=== PATIENT | female | born 1975 | race Caucasian/White ===

== ENCOUNTER → 2018-09-03 | Outpatient (CLI) | payer BC ==
[~2018-09-03] MED LIST: REGADENOSON 0.4 MG/5 ML DISP.SYRIN. IV ONE
--- NOTE | 2018-09-04 11:21 | RAD ---
MR#: [id number] Date of Study: 09/04/2018 Ordering Physician: DB SMITH, Referring Physician: DB SMITH, Tech: Zelda Andersen RDMS, RVT, RTR APPROVED REPORT Patient Location : OUT-PATIENT Indications Lower Extremity Edema : Bilateral Venous Insufficiency Findings Grayscale images of the bilateral saphenofemoral junctions and greater and lesser saphenous veins do not reveal any obvious evidence of thrombus. There is no evidence of reflux in the bilateral greater and lesser saphenous veins. The right great s aphenous vein measures 3.1 mm and the left great saphenous vein measures 3.8 mm. Critical Notification Critical Value: No <Conclusion> Negative for reflux in the bilateral greater and lesser saphenous veins. Signed by : Javy Hoyt, Electronically Approved : 09/04/2018 11:18:36
--- NOTE | 2018-09-04 12:58 | RAD ---
MR#: [id number] Date of Study: 09/04/2018 Ordering Physician: DB SMITH, Referring Physician: GERMÁN WELLER Tech: JW Jordan, ARRT (R) (N) APPROVED REPORT Test Type: Pharmacological Stress Nurse/Tech: Maria Dolores Mathews R.N./Robyn Cervantes RN Test Indications: PEREZ Cardiac History: No known cardiac Medications: See Electronic Medical Record Medical History: See Electronic Medical Record Resting ECG: SB with BBB Resting Heart Rate: 50 bpm Resting Blood Pressure: 100/60mmHg Pretest Chest Pain: No chest pain Nurse/Tech Notes S1S2, Lungs CTA Consent: The procedure was explained to the patient in lay terms. Informed consent was witnessed. Thang eout was entered into [facility]. History and Stress Test performed by RT Hossein Chamorro) (N) Pharm. Details Pharmacologic stress testing was performed using 0.4mg per 5ml of regadenoson given intravenously ove r 7-10 seconds. Stress Symptoms Dyspnea, Flushing, Nausea, Dizziness, Fatigue POST EXERCISE Reason for Termination: Infusion complete Max HR: 103 bpm Max Blood Pressure: 107/58mmHg Chest Pain: No. Arrhythmia: No. BBB continues from previous. ST Change: No. INTERPRETATION Stress EKG Conclusion: Baseline EKG showed sinus rhythm. No ischemic changes at peak stress. No arr hythmias. Imaging Protocol IMAGE PROTOCOL: Rest Tc-99m/stress Tc-99m 2 days Rest: Stress: Viability: Radiopharm.Tc99m KrggvfmxcKk90z Sestamibi Erly19lYr 32mCi Img Date 09/03/2018 09/04/2018 Inj-Img Nvry94bie. 90min. Rest Admin Site:IV - Right AntecubitalAdministrator:RT Hossein Chamorro)(N) Stress Admin Site: Doughnut Dough Mixer: RT Hossein Chamorro)(N) STRESS DATA End Diast. Vol.138.0mlLVEDV index BSA63.0ml End Syst. Vol.50.0mlLVESV index BSA23.0ml Myocardial Zquo403.0gEject. Grkacekw33.0% Stress Scores Regional WT0.00Summed WT0.00 Regional WM0.00Summed WM3.00 Study quality was good. Left Ventricular size was Normal at Rest and Stress. Lung uptake was . Left Ventricular ejection fraction is 64%. The rest and stress images show normal perfusion, normal contraction and thickening. LV Perf. Quant 17 Seg. SSS5.00 17 Seg. SRS0.00 17 Seg. SDS5.00 Stress Defect Extent (% LAD)8.80Rest Defect Extent (% LAD)0.00Rev. Defect Extent (% LAD)5.60 Stress Defect Extent (% LCX) 13.80Rest Defect Extent (% LCX)0.00Rev. Defect Extent (% LCX)13.80 Stress Defect Extent (% RCA)3.30Rest Defect Extent (% RCA)0.00Rev. Defect Extent (% RCA)3.30 Stress Defect Extent (% SANJAY)9.80Rest Defect Extent (% SANJAY)0.00Rev. Defect Extent (% SANJAY)7.60 Conclusion 1. Regadenoson cardioisotope stress test did not show any evidence of ischemia or infarct. 2. Normal left ventricular systolic function with ejection fraction calculated at 64%. 3. Low risk for cardiac events. Signed by : Db Smith, Electronically Approved : 09/04/2018 12:56:14
== END | disposition home or self-care (01) ==
LOC: NM 10:11
PROVIDERS: ATTEND Internal Medicine Cardiovascular Disease
DX: I87.2 Venous insufficiency (chronic) (peripheral) (principal); I45.4 Nonspecific intraventricular block
CPT/HCPCS: 78452; 96374; A9500; 93017; 93970; 96376; J2785

== ENCOUNTER → 2018-09-03 | Outpatient (CLI) | payer BC ==
--- NOTE | 2018-09-03 14:34 | CARD ---
MR#: [id number] Date of Study: 09/03/2018 Ordering Physician: DB SMITH, Referring Physician: DB SMITH Tech: Sally Mendenhall RDCS APPROVED REPORT EXAM: Two-dimensional and M-mode echocardiogram with Doppler and color Doppler. Other Information Quality : Good INDICATION Exertional Dyspnea 2D DIMENSIONS RVDd3.4 (2.9-3.5cm)Left Atrium(2D)4.5 (1.6-4.0cm) IVSd0.8 (0.7-1.1cm)Aortic Root(2D)3.0 (2.0-3.7cm) LVDd5.2 (3.9-5.9cm)LVOT Diameter2.3 (1.8-2.4cm) PWd0.8 (0.7-1.1cm)LVDs3.9 (2.5-4.0cm) FS (%) 25.1 %SV63.3 ml LVEF(%)49.3 (>50%) Aortic Valve AoV Peak Thomas.165.3cm/sAoV VTI31.8cm AO Peak GR.10.9mmHgLVOT Peak Thomas.95.3cm/s AO Mean GR.7mmHgAVA (VMAX)2.45cm2 MARIA INES (VTI)2.16ws8OE P 1/2 Puqm150oa Mitral Valve MV E Bxtltnet58.8cm/sMV DECEL BUNR016tb MV A Dxukeusz39.6cm/sE/A Ratio1.6 Tricuspid Valve TR P. Jngbuepd634mg/sRAP QSPABQGI9ixZw TR Peak Gr.99trEhATGF63tkGl Pulmonary Vein S1 Vlfrcrrg53.0cm/sD2 Jhdxhxnw08.4cm/s LEFT VENTRICLE The left ventricle is normal size. There is normal left ventricular wall thickness. The left ventricu lar systolic function is normal. The ejection fraction is estimated at 55%. There is normal LV segmen bobbi wall motion. The left ventricular diastolic function and filling is normal for age. RIGHT VENTRICLE The right ventricle is normal size. The right ventricular systolic function is normal. ATRIA The left atrium is mildly dilated. The right atrium size is normal. The interatrial septum is intact with no evidence for an atrial septal defect or patent foramen ovale as noted on 2-D or Doppler imagi ng. AORTIC VALVE The aortic valve is normal in structure and function. Doppler and Color Flow revealed mild aortic reg urgitation. There is no significant aortic valvular stenosis. MITRAL VALVE The mitral valve is normal in structure and function. There is no evidence of mitral valve prolapse. There is no mitral valve stenosis. Doppler and Color-flow revealed mild mitral regurgitation. TRICUSPID VALVE The tricuspid valve is normal in structure and function. Doppler and Color Flow revealed trace tricus pid regurgitation. The PA pressure was estimated at 26 mmHg. There is no tricuspid valve stenosis. PULMONIC VALVE The pulmonic valve is not well visualized. Doppler and Color Flow revealed trace pulmonic valvular re gurgitation. There is no pulmonic valvular stenosis. GREAT VESSELS The aortic root is normal in size. The ascending aorta is normal in size. The IVC is normal in size a nd collapses >50% with inspiration. PERICARDIAL EFFUSION There is no evidence of significant pericardial effusion. Critical Notification Critical Value: No <Conclusion> The left ventricular systolic function is normal. The ejection fraction is estimated at 55%. There is normal LV segmental wall motion. Mild aortic regurgitation. Mild mitral regurgitation. Trace tricuspid regurgitation. The PA pressure was estimated at 26 mmHg. There is no evidence of significant pericardial effusion. Signed by : Db Smith, Electronically Approved : 09/03/2018 14:32:35
== END | disposition home or self-care (01) ==
LOC: ECHO 10:05
PROVIDERS: ATTEND Internal Medicine Cardiovascular Disease
DX: I08.0 Rheumatic disorders of both mitral and aortic valves (principal)
CPT/HCPCS: 93306

== ENCOUNTER 2019-04-14 13:30 | Emergency (ER) | payer BC ==
[~2019-04-14] VITALS: Ht 167.6 cm; Wt 97.5 kg
[2019-04-14 15:28] LABS: BILIRUBIN,URINE NEGATIVE (NEG); CLARITY,URINE CLEAR; COLOR,URINE YELLOW; NITRITE,URINE NEGATIVE (NEG); PROTEIN,URINE NEGATIVE (NEG-TRACE)
--- NOTE | 2019-04-14 15:28 | PHYS DOC ---
Past Medical History Past Medical History: Anxiety, Depression Past Surgical History: No Surgical History, Tubal ligation Alcohol Use: None Drug Use: None Adult General Chief Complaint Chief Complaint: DIZZY/LIGHT HEADED HPI HPI Patient is a 43 year old female that presents with feeling off today. The patient states that she has been lightheaded and dizzy accompanied by chest pressure that started around 10 AM. The patient also states she's been feeling depressed but denies suicidal thoughts. The patient states her son was murdered last year and then her dad passed when the next days she's been struggling with this since that time. Rates her pain is 6 out of 10 in severity and describes it as a pressure midsternal area of her chest. Has not take any medicine prior to arrival. Review of Systems Review of Systems Constitutional: Denies fever or chills. Reports Dizziness. Eyes: Denies change in visual acuity, redness, or eye pain [] HENT: Denies nasal congestion or sore throat [] Respiratory: Denies cough or shortness of breath [] Cardiovascular: No additional information not addressed in HPI [] GI: Denies abdominal pain, nausea, vomiting, bloody stools or diarrhea [] : Denies dysuria or hematuria [] Musculoskeletal: Denies back pain or joint pain [] Integument: Denies rash or skin lesions [] Neurologic: Denies headache, focal weakness or sensory changes [] Endocrine: Denies polyuria or polydipsia [] Psych: Report feeling Depressed, Denies SI thoughts or Plan. Complete systems were reviewed and found to be within normal limits, except as documented in this note. Current Medications Current Medications Current Medications Medications (Trade) Dose Ordered Sig/[facility] Start Time Stop Time Status Last Admin Dose Admin Lorazepam (Ativan Inj) 2 mg 1X ONCE 04/14/19 15:30 04/14/19 15:31 DC 04/14/19 15:45 2 MG Allergies Allergies Allergies Coded Allergies Type Severity Reaction Last Updated Verified ibuprofen Allergy Mild Hives 09/04/18 Yes Physical Exam Physical Exam Constitutional: Well developed, well nourished, no acute distress, non-toxic appearance. [] HENT: Normocephalic, atraumatic, bilateral external ears normal, oropharynx moist, no oral exudates, nose normal. [] Eyes: PERRLA, EOMI, conjunctiva normal, no discharge. [] Neck: Normal range of motion, no tenderness, supple, no stridor. [] Cardiovascular:Heart rate regular rhythm, no murmur [] Lungs & Thorax: Bilateral breath sounds clear to auscultation [] Abdomen: Bowel sounds normal, soft, no tenderness, no masses, no pulsatile masses. [] Skin: Warm, dry, no erythema, no rash. [] Back: No tenderness, no CVA tenderness. [] Extremities: No tenderness, no cyanosis, no clubbing, ROM intact, no edema. [] Neurologic: Alert and oriented X 3, normal motor function, normal sensory function, no focal deficits noted. [] Psychologic: Affect flat, judgement normal Current Patient Data Vital Signs Vital Signs Date Time Temp Pulse Resp B/P (MAP) Pulse Ox O2 Delivery O2 Flow Rate FiO2 04/14/19 14:49 98.2 76 20 152/74 (100) 97 Room Air 98.2 Lab Values Laboratory Tests Test 04/14/19 14:50 04/14/19 15:40 Urine Collection Type Unknown Urine Color Yellow Urine Clarity Clear Urine pH 6.0 Urine Specific [place] >=1.030 Urine Protein Negative mg/dL (NEG-TRACE) Urine Glucose (UA) Negative mg/dL (NEG) Urine Ketones (Stick) Negative mg/dL (NEG) Urine Blood Negative (NEG) Urine Nitrite Negative (NEG) Urine Bilirubin Negative (NEG) Urine Urobilinogen Dipstick 1.0 mg/dL (0.2 mg/dL) Urine Leukocyte Esterase Negative (NEG) Urine RBC 1-2 /HPF (0-2) Urine WBC 1-4 /HPF (0-4) Urine Squamous Epithelial Cells Many /LPF Urine Bacteria Moderate /HPF (0-FEW) Urine Mucus Marked /LPF White Blood Count 6.7 x10^3/uL (4.0-11.0) Red Blood Count 4.37 x10^6/uL (3.50-5.40) Hemoglobin 13.3 g/dL (12.0-15.5) Hematocrit 38.6 % (36.0-47.0) Mean Corpuscular Volume 88 fL (79-100) Mean Corpuscular Hemoglobin 30 pg (25-35) Mean Corpuscular Hemoglobin Concent 34 g/dL (31-37) Red Cell Distribution Width 13.7 % (11.5-14.5) Platelet Count 204 x10^3/uL (140-400) Neutrophils (%) (Auto) 56 % (31-73) Lymphocytes (%) (Auto) 35 % (24-48) Monocytes (%) (Auto) 7 % (0-9) Eosinophils (%) (Auto) 2 % (0-3) Basophils (%) (Auto) 1 % (0-3) Neutrophils # (Auto) 3.7 x10^3/uL (1.8-7.7) Lymphocytes # (Auto) 2.3 x10^3/uL (1.0-4.8) Monocytes # (Auto) 0.4 x10^3/uL (0.0-1.1) Eosinophils # (Auto) 0.1 x10^3/uL (0.0-0.7) Basophils # (Auto) 0.1 x10^3/uL (0.0-0.2) Sodium Level 143 mmol/L (136-145) Potassium Level 3.7 mmol/L (3.5-5.1) Chloride Level 106 mmol/L (98-107) Carbon Dioxide Level 29 mmol/L (21-32) Anion Gap 8 (6-14) Blood Urea Nitrogen 16 mg/dL (7-20) Creatinine 0.7 mg/dL (0.6-1.0) Estimated GFR (Cockcroft-Gault) 90.5 BUN/Creatinine Ratio 23 (6-20) H Glucose Level 96 mg/dL (70-99) Calcium Level 9.3 mg/dL (8.5-10.1) Total Bilirubin 0.2 mg/dL (0.2-1.0) Aspartate Amino Transferase (AST) 10 U/L (15-37) L Alanine Aminotransferase (ALT) 17 U/L (14-59) Alkaline Phosphatase 70 U/L (46-116) Troponin I Quantitative < 0.017 ng/mL (0.000-0.055) Total Protein 7.0 g/dL (6.4-8.2) Albumin 4.1 g/dL (3.4-5.0) Albumin/Globulin Ratio 1.4 (1.0-1.7) Laboratory Tests 04/14/19 15:40 Laboratory Tests 04/14/19 15:40 EKG EKG EKG interpreted by Dr. Friedman No STEMI, Sinus rate of 71.[] Radiology/Procedures Radiology/Procedures [][facility] [address] [place] [address] IMAGING REPORT Signed PATIENT: GILBERTO OSORIOUNT: [id number] : 1975 LOCATION: ER AGE: 43 SEX: F EXAM STATUS: REG ER ORD. PHYSICIAN: AIRAM SELLERS APRN REASON: cp/dizziness x1 day PROCEDURE: CHEST PA & LATERAL AP and Lateral Views of the Chest 04/14/2019 3:19 PM Indication: Chest pain, dizziness Comparison: None Findings: There is no focal consolidation or infiltrate identified. The cardiomediastinal silhouette is within normal limits. There is no evidence of pneumothorax or pleural effusion. No acute osseous abnormalities are identified. Impression: No evidence of acute cardiopulmonary process. Electronically signed by: Steven Martinez MD (04/14/2019 3:42 PM) [facility] DICTATED and SIGNED BY: STEVEN MARTINEZ MD DATE: 04/14/19 1542 Course & Med Decision Making Course & Med Decision Making Pertinent Labs and Imaging studies reviewed. (See chart for details) Will get chest x-ray, labs, and give supportive care. Labs are unremarkable, chest x-ray is unremarkable. Urine has bacteria but appears to be contaminated. Will wait for culture to treat. Heart Score is a two will d/c home to follow up with [facility], psychiatric, and pcp. Appears to have had panic attack. Dragon Disclaimer Dragon Disclaimer This electronic medical record was generated, in whole or in part, using a voice recognition dictation system. Departure Departure Impression: Primary Impression: Panic attack as reaction to stress Additional Impression: Chest pain in adult Disposition: 01 HOME, SELF-CARE Condition: STABLE Referrals: HILTON MORAES APRN (PCP) DB SMITH MD Patient Instructions: Anxiety and Panic Attacks Additional Instructions: Thank you for visiting [facility]. We appreciate you trusting us with your care. If any additional problems come up don't hesitate to return to visit us. Please follow up with your primary care provider so they can plan additional care if needed and know about the problem that you had. If symptoms worsen come back to the Emergency Department. Any concerning symptoms that start such as chest pain, shortness of air, weakness or numbness on one side of the body, running high fevers or any other concerning symptoms return to the ER. Please follow up with your psychiatrist, your primary care doctor, and cardiology for more extensive workup. If symptoms worsen return to ER. The HEART Score for CP Pts HEART Score for Chest Pain: HEART Score for Chest Pain Response (Comments) Value History Slighlty/Non-Suspicious 0 ECG Normal 0 Age >45 - < 65 1 Risk Factors 1 or 2 Risk Factors 1 Troponin < Normal Limit 0 Total 2 Risk Factors: Risk Factors: DM, Current or recent (<one month) smoker, HTN, HLP, family history of CAD, obesity. Risk Scores: Score 0 - 3: 2.5% MACE over next 6 weeks - Discharge Home Score 4 - 6: 20.3% MACE over next 6 weeks - Admit for Clinical Observation Score 7 - 10: 72.7% MACE over next 6 weeks - Early Invasive Strategies Problem Qualifiers AIRAM SELLERS APRN Apr 14, 2019 15:28
[2019-04-14 15:43] LABS: SQUAMOUS EPITHELIAL CELL,UR MANY /LPF
[2019-04-14 15:44] LABS: BACTERIA,URINE MODERATE /HPF (0-FEW)
--- NOTE | 2019-04-14 15:45 | RAD ---
AP and Lateral Views of the Chest 04/14/2019 3:19 PM Indication: Chest pain, dizziness Comparison: None Findings: There is no focal consolidation or infiltrate identified. The cardiomediastinal silhouette is within normal limits. There is no evidence of pneumothorax or pleural effusion. No acute osseous abnormalities are identified. Impression: No evidence of acute cardiopulmonary process. Electronically signed by: Steven Garcia MD (04/14/2019 3:42 PM) [facility]
[2019-04-14 15:57] LABS: BASO # 0.1 x10^3/uL (0.0-0.2); BASO % 1 % (0-3); EOS # 0.1 x10^3/uL (0.0-0.7); EOS % 2 % (0-3); HEMATOCRIT 38.6 % (36.0-47.0); HEMOGLOBIN 13.3 g/dL (12.0-15.5); LYMPH # 2.3 x10^3/uL (1.0-4.8); LYMPH % 35 % (24-48); MEAN CORPUSCULAR HEMOGLOBIN 30 pg (25-35); MEAN CORPUSCULAR HGB CONC 34 g/dL (31-37); MEAN CORPUSCULAR VOLUME 88 fL (79-100); MONO # 0.4 x10^3/uL (0.0-1.1); MONO % 7 % (0-9); NEUT # 3.7 x10^3/uL (1.8-7.7); NEUT % 56 % (31-73); PLATELET COUNT 204 x10^3/uL (140-400); RED BLOOD COUNT 4.37 x10^6/uL (3.50-5.40); RED CELL DISTRIBUTION WIDTH 13.7 % (11.5-14.5); WHITE BLOOD COUNT 6.7 x10^3/uL (4.0-11.0)
[2019-04-14 16:00] VITALS: BP 123/82
[2019-04-14 16:04] LABS: CALCIUM 9.3 mg/dL (8.5-10.1); CREATININE 0.7 mg/dL (0.6-1.0); GFR 90.5; POTASSIUM 3.7 mmol/L (3.5-5.1)
[2019-04-14 16:10] LABS: ALBUMIN 4.1 g/dL (3.4-5.0); ALBUMIN/GLOBULIN RATIO 1.4 (1.0-1.7); TOTAL BILIRUBIN 0.2 mg/dL (0.2-1.0)
--- NOTE | 2019-04-14 16:21 | EKG ---
[facility] [address] [place] [address] Test Date: 2019-04-14 Test Time: 14:46:31 Pat Name: GILBERTO OSORIO Department: Room: Gender: F Certified Surgical Technologist: : 1975 Requested By: AIRAM SELLERS Order Number: [id number] Reading MD: Measurements Intervals Morton Rate: 71 P: 17 ND: 158 QRS: -26 QRSD: 96 T: 23 QT: 404 QTc: 439 Interpretive Statements SINUS RHYTHM LEFTWARD AXIS R-S TRANSITION ZONE IN V LEADS DISPLACED TO THE LEFT NO SPECIFIC ECG ABNORMALITIES RI6.01 Unconfirmed report No previous ECG available for comparison
== END 2019-04-14 16:40 | disposition home or self-care (01) ==
LOC: ER 13:30
DX: F41.0 Panic disorder [episodic paroxysmal anxiety] (principal); R07.89 Other chest pain; F32.9 Major depressive disorder, single episode, unspecified; Z98.51 Tubal ligation status; Z88.6 Allergy status to analgesic agent
CPT/HCPCS: 36415; 71046; 80053; 81001; 84484; 85025; 87086; 93005; 96374; 99285; J2060

== ENCOUNTER 2019-06-25 21:34 | Emergency (ER) | payer BC ==
[~2019-06-25] VITALS: Ht 167.6 cm; Wt 88.5 kg
[2019-06-25] MEDS ORDERED: LIDOCAINE 2% 20 ML VIAL. IJ ONE (22:30)
[2019-06-25] MEDS ORDERED: IV NORMAL SALINE 1000ML BAG 1,000 ML IV ONE (22:30)
--- NOTE | 2019-06-25 22:33 | PHYS DOC ---
Past Medical History Past Medical History: Anxiety, Depression Past Surgical History: Tubal ligation Alcohol Use: None Drug Use: None Adult General Chief Complaint Chief Complaint: LACERATION/AVULSION HPI HPI Patient is a 44 year old female who presents with a near syncopal episode. The patient states that she was bringing her 's. Bottle back into the house to get another one for him and she got dizzy and lightheaded and fell down 3 steps onto the concrete. The patient has a laceration to her left arm. The patient cannot remember if she hit her head. Rates her pain as 3 out of 10 in severity at this time. Denies drinking. Review of Systems Review of Systems Constitutional: Denies fever or chills [] Eyes: Denies change in visual acuity, redness, or eye pain [] HENT: Denies nasal congestion or sore throat [] Respiratory: Denies cough or shortness of breath [] Cardiovascular: No additional information not addressed in HPI [] GI: Denies abdominal pain, nausea, vomiting, bloody stools or diarrhea [] : Denies dysuria or hematuria [] Musculoskeletal: Denies back pain or joint pain [] Integument: Denies rash or skin lesions [] Neurologic: Denies headache, focal weakness or sensory changes [] Endocrine: Denies polyuria or polydipsia [] All other systems were reviewed and found to be within normal limits, except as documented in this note. Current Medications Current Medications Current Medications Medications (Trade) Dose Ordered Sig/Terra Start Time Stop Time Status Last Admin Dose Admin Diphtheria/ Tetanus/Acell Pertussis (Boostrix) 0.5 ml ONCE ONCE 06/25/19 22:45 06/25/19 22:46 DC Lidocaine HCl 20 ml 1X ONCE 06/25/19 22:30 06/25/19 22:32 DC Sodium Chloride 1,000 ml @ 1,000 mls/hr 1X ONCE 06/25/19 22:30 06/25/19 23:29 DC 06/25/19 22:52 1,000 MLS/HR Allergies Allergies Allergies Coded Allergies Type Severity Reaction Last Updated Verified ibuprofen Allergy Mild Hives 09/04/18 Yes Physical Exam Physical Exam Constitutional: Well developed, well nourished, no acute distress, non-toxic appearance. [] HENT: Normocephalic, atraumatic, bilateral external ears normal, oropharynx mo ist, no oral exudates, nose normal. [] Eyes: PERRLA, EOMI, conjunctiva normal, no discharge. [] Neck: Normal range of motion, no tenderness, supple, no stridor. [] Cardiovascular:Heart rate regular rhythm, no murmur [] Lungs & Thorax: Bilateral breath sounds clear to auscultation [] Abdomen: Bowel sounds normal, soft, no tenderness, no masses, no pulsatile masses. [] Skin: laceration to the left forearm x 2. 2 cm and straight (parallel). Back: No tenderness, no CVA tenderness. [] Extremities: Tenderness to left forearm and hand. No edema. Neurologic: Alert and oriented X 3, normal motor function, normal sensory function, no focal deficits noted. [] Psychologic: Affect normal, judgement normal, mood normal. [] Current Patient Data Vital Signs Vital Signs Date Time Temp Pulse Resp B/P (MAP) Pulse Ox O2 Delivery O2 Flow Rate FiO2 06/25/19 21:40 98.5 62 16 117/58 (77) 99 Room Air 98.5 Lab Values Laboratory Tests Test 06/25/19 22:47 06/25/19 22:54 POC Urine HCG, Qualitative Hcg negative (Negative) White Blood Count 5.2 x10^3/uL (4.0-11.0) Red Blood Count 4.06 x10^6/uL (3.50-5.40) Hemoglobin 12.3 g/dL (12.0-15.5) Hematocrit 36.1 % (36.0-47.0) Mean Corpuscular Volume 89 fL (79-100) Mean Corpuscular Hemoglobin 30 pg (25-35) Mean Corpuscular Hemoglobin Concent 34 g/dL (31-37) Red Cell Distribution Width 13.8 % (11.5-14.5) Platelet Count 189 x10^3/uL (140-400) Neutrophils (%) (Auto) 54 % (31-73) Lymphocytes (%) (Auto) 37 % (24-48) Monocytes (%) (Auto) 7 % (0-9) Eosinophils (%) (Auto) 1 % (0-3) Basophils (%) (Auto) 0 % (0-3) Neutrophils # (Auto) 2.8 x10^3/uL (1.8-7.7) Lymphocytes # (Auto) 2.0 x10^3/uL (1.0-4.8) Monocytes # (Auto) 0.4 x10^3/uL (0.0-1.1) Eosinophils # (Auto) 0.1 x10^3/uL (0.0-0.7) Basophils # (Auto) 0.0 x10^3/uL (0.0-0.2) Sodium Level 142 mmol/L (136-145) Potassium Level 3.9 mmol/L (3.5-5.1) Chloride Level 107 mmol/L (98-107) Carbon Dioxide Level 28 mmol/L (21-32) Anion Gap 7 (6-14) Blood Urea Nitrogen 21 mg/dL (7-20) H Creatinine 0.6 mg/dL (0.6-1.0) Estimated GFR (Cockcroft-Gault) 107.6 BUN/Creatinine Ratio 35 (6-20) H Glucose Level 94 mg/dL (70-99) Calcium Level 8.4 mg/dL (8.5-10.1) L Magnesium Level 2.0 mg/dL (1.8-2.4) Total Bilirubin 0.3 mg/dL (0.2-1.0) Aspartate Amino Transferase (AST) 11 U/L (15-37) L Alanine Aminotransferase (ALT) 18 U/L (14-59) Alkaline Phosphatase 63 U/L (46-116) Troponin I Quantitative < 0.017 ng/mL (0.000-0.055) Total Protein 6.8 g/dL (6.4-8.2) Albumin 3.8 g/dL (3.4-5.0) Albumin/Globulin Ratio 1.3 (1.0-1.7) Laboratory Tests 06/25/19 22:54 Laboratory Tests 06/25/19 22:54 EKG EKG EKG interpreted by Dr. Elder Smith with rate of 51, No STEMI. Radiology/Procedures Radiology/Procedures Indication: L forearm laceration x 2 Procedure: The patient was placed in the appropriate position and anesthesia around the lidocaine. The area was then cleansed with 210 mL of NS. The lace ration # 1 was closed with 3 4-0 ethilon simple interrupted sutures. The laceration # 2 was closed with 5 4-0 simple interrupted ethilon sutures.The wound area was then dressed with [WOUND COVERING]. Total repaired wound length: Laceration # 1 : 2 cm Laceration # 2: 2 cm. The patient tolerated the procedure. Complications: None. [] [address] [place] [address] IMAGING REPORT Signed PATIENT: GILBERTO OSORIO RACCOUNT: [id number] : 1975 LOCATION: ER AGE: 44 SEX: F EXAM STATUS: REG ER ORD. PHYSICIAN: AIRAM SELLERS APRN REASON: fall, dizziness PROCEDURE: CT HEAD AND CERVICAL SPINE WO CT scan of the head without contrast 06/25/2019 Clinical History: Fall. Dizziness. Technique: Unenhanced, contiguous, 5 mm axial sections were obtained through the head. One or more of the following individualized dose reduction techniques were utilized for this study: 1. Automated exposure control. 2. Adjustment of the mA and/or kV according to patient size. 3. Use of iterative reconstruction technique. Findings: The ventricles and sulci are within normal limits in size and configuration. No area of abnormal attenuation seen involving the brain parenchyma. No extra-axial fluid collection is noted. No skull fracture is seen. Impression: No acute intracranial abnormality is seen. CT scan of the cervical spine without contrast 06/25/2019 Clinical history: Fall with neck injury. Technique: Unenhanced, contiguous, 0.625 mm axial sections were obtained through the cervical spine. Axial, coronal and sagittal reconstructed images were obtained. One or more of the following individualized dose reduction techniques were utilized for this study: 1. Automated exposure control. 2. Adjustment of the mA and/or kV according to patient size. 3. Use of iterative reconstruction technique. Findings: Sagittal and coronal reconstructed images demonstrate very mild lateral curvature of the cervical spine, convex to the right. There is straightening of the normal cervical lordosis. No fracture or subluxation of the cervical vertebrae is seen. No significant degenerative changes are noted. Impression: No fracture or subluxation of the cervical vertebra is identified. Electronically signed by: Stanley Soliman MD (06/25/2019 11:22 PM) [facility] DICTATED and SIGNED BY: STANLEY SOLIMAN MD DATE: 06/25/19 4339 Course & Med Decision Making Course & Med Decision Making Pertinent Labs and Imaging studies reviewed. (See chart for details) Due to the near syncopal episode, will get EKG, labs, and chest x-ray. Will also get x-rays and then repair laceration. Labs are unremarkable. Imaging is unremarkable. Sutured patient. Will d/c home to follow up with primary care provider. Dragon Disclaimer Dragon Disclaimer This electronic medical record was generated, in whole or in part, using a voice recognition dictation system. Departure Departure Impression: Primary Impression: Laceration Additional Impression: Near syncope Disposition: HOME, SELF-CARE Condition: STABLE Referrals: HILTON MORAES APRN (PCP) Patient Instructions: Laceration Care, Adult, Syncope Additional Instructions: Thank you for visiting [facility]. We appreciate you trusting us with your care. If any additional problems come up [facility]'t hesitate [facility] Please follow up with your primary care provider so they can plan additional care if needed and know about the problem that you had. If symptoms worsen come back to the Emergency Department. Any concerning symptoms that start such as chest pain, shortness of air, weakness or numbness on one side of the body, running high fevers or any other concerning symptoms return to the ER. Please keep your wound dry, especially for the first 24 hours. After the first 24 hours you can wet the wound for a short time. Do not soak the wound or swim until the sutures have been removed. Please have the sutures removed in 7-10 days by your primary care doctor or return to ER for removal. Please keep the wound clean and change your bandage at least twice per day. You can use Neosporin on the wound to help reduce the chance of infection. If you notice signs of infection such as drainage from the wound (Pus), redness, increased pain or swelling return to ER for treatment. Problem Qualifiers AIRAM SELLERS APRN Jun 25, 2019 22:33
[2019-06-25] MEDS ORDERED: DIPHTH,PERTUSS(ACELL),TET TOX 0.5 ML DISP.SYRIN. VAX IM ONE (22:45)
[2019-06-25 23:03] LABS: BASO % 0 % (0-3); EOS # 0.1 x10^3/uL (0.0-0.7); EOS % 1 % (0-3); HEMATOCRIT 36.1 % (36.0-47.0); HEMOGLOBIN 12.3 g/dL (12.0-15.5); LYMPH % 37 % (24-48); MEAN CORPUSCULAR HEMOGLOBIN 30 pg (25-35); MEAN CORPUSCULAR HGB CONC 34 g/dL (31-37); MEAN CORPUSCULAR VOLUME 89 fL (79-100); MONO # 0.4 x10^3/uL (0.0-1.1); MONO % 7 % (0-9); NEUT # 2.8 x10^3/uL (1.8-7.7); NEUT % 54 % (31-73); PLATELET COUNT 189 x10^3/uL (140-400); RED BLOOD COUNT 4.06 x10^6/uL (3.50-5.40); RED CELL DISTRIBUTION WIDTH 13.8 % (11.5-14.5); WHITE BLOOD COUNT 5.2 x10^3/uL (4.0-11.0)
[2019-06-25 23:14] LABS: CALCIUM 8.4 mg/dL (8.5-10.1); CREATININE 0.6 mg/dL (0.6-1.0); GFR 107.6; POTASSIUM 3.9 mmol/L (3.5-5.1)
[2019-06-25 23:21] LABS: ALBUMIN 3.8 g/dL (3.4-5.0); ALBUMIN/GLOBULIN RATIO 1.3 (1.0-1.7); TOTAL BILIRUBIN 0.3 mg/dL (0.2-1.0); TOTAL PROTEIN 6.8 g/dL (6.4-8.2)
--- NOTE | 2019-06-25 23:25 | RAD ---
CT scan of the head without contrast 06/25/2019 Clinical History: Fall. Dizziness. Technique: Unenhanced, contiguous, 5 mm axial sections were obtained through the head. One or more of the following individualized dose reduction techniques were utilized for this study: 1. Automated exposure control. 2. Adjustment of the mA and/or kV according to patient size. 3. Use of iterative reconstruction technique. Findings: The ventricles and sulci are within normal limits in size and configuration. No area of abnormal attenuation seen involving the brain parenchyma. No extra-axial fluid collection is noted. No skull fracture is seen. Impression: No acute intracranial abnormality is seen. CT scan of the cervical spine without contrast 06/25/2019 Clinical history: Fall with neck injury. Technique: Unenhanced, contiguous, 0.625 mm axial sections were obtained through the cervical spine. Axial, coronal and sagittal reconstructed images were obtained. One or more of the following individualized dose reduction techniques were utilized for this study: 1. Automated exposure control. 2. Adjustment of the mA and/or kV according to patient size. 3. Use of iterative reconstruction technique. Findings: Sagittal and coronal reconstructed images demonstrate very mild lateral curvature of the cervical spine, convex to the right. There is straightening of the normal cervical lordosis. No fracture or subluxation of the cervical vertebrae is seen. No significant degenerative changes are noted. Impression: No fracture or subluxation of the cervical vertebra is identified. Electronically signed by: Stanley Soliman MD (06/25/2019 11:22 PM) [facility]
[2019-06-26 00:20] VITALS: BP 114/60
[2019-06-26] MEDS ORDERED: NEOMY/BACITR/POLYMYXIN OINT PACKET. TP ONE (00:45)
--- NOTE | 2019-06-26 07:35 | RAD ---
CHEST PA LATERAL INDICATION: Near syncope. COMPARISON STUDY: 04/14/2019. FINDINGS: Lungs: Normal lung volume. No pulmonary mass or consolidation. The tracheobronchial tree and hilar structures are normal. Pleura: No pleural effusion or pneumothorax. Heart and Mediastinum: The cardiomediastinal silhouette is normal. The great vessels of the thorax are normal. IMPRESSION: No acute cardiopulmonary process. Electronically signed by: Desmond Andrade MD (06/26/2019 7:33 AM) [facility]
--- NOTE | 2019-06-26 07:59 | RAD ---
WRIST 3V LEFT, FOREARM LEFT, HAND LEFT 3V DATE: 06/25/2019 10:22 PM INDICATION: Fall, COMPARISON: None. FINDINGS: Bones: There is no evidence of acute fracture or dislocation. Joints: The joint spaces are normal. Miscellaneous: None. IMPRESSION: No evidence of acute fracture of the hand, wrist, or forearm. Electronically signed by: Desmond Andrade MD (06/26/2019 7:57 AM) [facility]
--- NOTE | 2019-06-26 07:59 | RAD ---
WRIST 3V LEFT, FOREARM LEFT, HAND LEFT 3V DATE: 06/25/2019 10:22 PM INDICATION: Fall, COMPARISON: None. FINDINGS: Bones: There is no evidence of acute fracture or dislocation. Joints: The joint spaces are normal. Miscellaneous: None. IMPRESSION: No evidence of acute fracture of the hand, wrist, or forearm. Electronically signed by: Desmond Andrade MD (06/26/2019 7:57 AM) [facility]
--- NOTE | 2019-06-26 07:59 | RAD ---
WRIST 3V LEFT, FOREARM LEFT, HAND LEFT 3V DATE: 06/25/2019 10:22 PM INDICATION: Fall, COMPARISON: None. FINDINGS: Bones: There is no evidence of acute fracture or dislocation. Joints: The joint spaces are normal. Miscellaneous: None. IMPRESSION: No evidence of acute fracture of the hand, wrist, or forearm. Electronically signed by: Desmond Andrade MD (06/26/2019 7:57 AM) [facility]
--- NOTE | 2019-06-27 10:07 | EKG ---
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
== END 2019-06-26 00:52 | disposition home or self-care (01) ==
LOC: ER 21:34
DX: S51.812A Laceration without foreign body of left forearm, initial encounter (principal); S61.412A Laceration without foreign body of left hand, initial encounter; R55 Syncope and collapse; F41.9 Anxiety disorder, unspecified; F32.9 Major depressive disorder, single episode, unspecified; Z98.51 Tubal ligation status; Z88.3 Allergy status to other anti-infective agents; W10.8XXA Fall (on) (from) other stairs and steps, initial encounter; Y93.89 Activity, other specified; Y92.89 Other specified places as the place of occurrence of the external cause; Y99.8 Other external cause status
CPT/HCPCS: 12002; 36415; 70450; 71046; 72125; 73090; 73110; 73130; 80053; 81025; 83735; 84484; 85025; 93005; 96360; 99285; J2001; J7030

== ENCOUNTER → 2020-10-21 | Outpatient (CLI) | payer BC ==
--- NOTE | 2020-10-21 16:01 | KCIC ---
EXAMINATION: XR HIP (WITH OR WITHOUT PELVIS)LEFT 1 VIEW CLINICAL HISTORY: Left lateral hip pain in recent weeks. NKI TECHNIQUE: XR HIP (WITH OR WITHOUT PELVIS)LEFT 1 VIEW Number of Images/Views: 2 COMPARISON: None FINDINGS: Joint space alignment maintained in the left hip. Limited evaluation of the right hip unremarkable. P ubic symphysis and SI joints maintained. No acute fracture. Pelvic phleboliths. IMPRESSION: No acute osseous abnormality left hip. Electronically signed by: Addison Mari DO (10/21/2020 3:59 PM) [id number]
== END ==
LOC: KCIC 15:20
PROVIDERS: ATTEND Nurse Practitioner Family
DX: M25.552 Pain in left hip (principal)
CPT/HCPCS: 73501